=== PATIENT | male | born 1940 | race Caucasian/White ===

== ENCOUNTER 2024-11-14 14:36 | Outpatient (REF) | payer MEDICARE, SELFPAY ==
--- OUTSIDE RECORDS SUMMARY | 2024-11-14 14:45 | XMS_ITS | Clinical Summary ---
Author Organization [facility] [address] [facility] [address] Address [address] [facility] [place] [address] Phone Care Team Providers Care Type Caster Name Role Phone Ginette Eubanks MD Primary Care Prov ider Allergies Active Allergy Reactions Criticality Noted Date Comments Celecoxib Diarrhea 02/24/2023 Medications amLODIPine (NORVASC) 10 mg tablet Take 1 Tablet by mouth daily. 4 Active atorvastatin (LIPITOR) 40 mg tablet Take 1 tablet (40 mg total) by mouth 1 (one) time each day. Take with 20mg for total of 60mg 4 Active chlorthalidone (HYGROTON) 25 mg tablet Take 1 Tablet by mouth daily. 4 Active omeprazole (PriLOSEC) [address] capsule Take 1 Capsule by mouth daily. Take in am on empty stomach, wait 30 mins and then eat to activate the medication 4 Active nitroglycerin (NITROSTAT) 0.[address] 1 Tablet under the tongue every 5 minutes as needed for Chest pain. Check expiration 4 Active aspirin 81 mg EC tablet Take by mouth every other day. Active atorvastatin (LIPITOR) 20 mg tablet Take 1 tablet (20 mg total) by mouth 1 (one) time each day. Take with 40mg for total of 60mg 90 each 1 4 02/16/20 25 Active metoprolol succinate (TOPROL-XL) 50 mg 24 hr tablet Take 1 tablet (50 mg total) by mouth 1 (one) time each day. Do not crush or chew. 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 Hypercholesteremia 05/01/2009 GERD (gastroesophageal reflux disease) 9 Overview (07/08/2024): Hx of Schatzki's ring dilated by Dr Jones Nephrolithiasis 05/01/2009 Overview (07/08/2024): Right Cat scan 09/01 Kidney cysts 05/01/2009 Overview (07/08/2024): Bilateral, Cat scan 09/01, ultrasound 10/03, simple cysts Diverticulosis of colon 05/01/2009 Hypertension 05/01/2009 Encounters Date Type Department Care Team Description 08/19/2024 9:45 AM EST Office Visit Adult Medicine - [place] [address] [place] [phone] Kaitlin Mena PA Tremor (Primary Dx); Hypercholesteremia; Coronary artery disease involving galena heart without angina pectoris, unspecified vessel or lesion type; GIST (gastrointestinal stroma tumor), malignant, colon (CMS/HCC); Prediabetes; Primary osteoarthritis of right knee; Bladder mass; Hypertension, unspecified type; Old NV (myocardial infarction); Gastroesophageal reflux disease without esophagitis from Last 3 Months Immunizations Name Administration Dates Next Due Influenza trivalent, 0.5mL ( Fluad) 65yo and older 08/14/2023,07/18/2019 Influenza trivalent, 0.5mL, preservative free (Fluarix; FluLaval; Fluzone) ages 6mo and older (Afluria) 3 years and older 08/10/2013,10/07/2012,07/03/2011,06/21 [employer] SARS-CoV-2 COVID-19, mRNA, LNP-S, preservative free 07/03/2021,11/18/2020,11/09/2020,10/28 Pneumococcal polysaccharide 23 valent (Pneumovax 23) 2yo and older 05/01/2009 Td Tetanus diptheria (Tdvax) 7yo and older 05/03/2009 Tdap Tetanus diptheria acell ular pertussis (Boostrix; Adacel) 7yo and older 04/12/2018 Surgical History Surgery Date Site/Laterality Comments OTHER SURGICAL HISTORY 05/29/1997 PROCEDURE: DISKECTOMY LUMBAR SINGLE SP; COMMENT: left, 4-5 nerve root block OTHER SURGICAL HISTORY 09/28/1987 PROCEDURE: HISTORY OTHER; COMMENT: 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 OTHER SURGICAL HISTORY Bilateral PROCEDURE: HISTORY OTHER; COMMENT: Cauterization of eyelids due to frequent blepharitis Medical History Medical History Date Comments Hypertension 05/01/2009 DX:Hypertension Presbycusis 01/08/2021 DX:Presbycusis Lesion of stomach DX:Lesion of s tomach Abnormal MRI of abdomen DX:Abnor mal MRI of abdomen; COMMENT: Round lesion noted in inferior wall of antrum Gallstones DX:Gallstones Kidney cysts DX:Kidney cysts Chronic ischemic heart disease D X:Chronic ischemic heart disease Cervical spondylosis without myelopathy DX:Cervical spondylosis without myelopathy Esophageal reflux DX:Esophageal reflux Hyperlipidemia DX:Hyperlipidemi a Gastric lesion DX:Gastric lesio n Abnormal MRI of abdomen DX:Abnor mal MRI of abdomen GIST (gastrointestinal yobany a tumor), malignant, colon (CMS/HCC) 05/19/2024 DX:GIST (gastrointestinal s troma tumor), malignant, colon (HCC) Family History Medical History Relation Name Comments Heart attack Brother 1 Heart attack Father Heart attack Mother Relation Name Status Comments Brother 1 Brother 2 (Age 70s) Mi Father Mother (Age 90s) NV Sister NV Social History Tobacco Use Types Packs/Day Years Used Date Smoking Tobacco: Every Day Cigarettes Last attempted to quit: 09/21/2013 Smokeless Tobacco: Never Tobacco Cessation:Ready to Q uit: Not Asked; Counseling Given: Not Answered Alcohol Use Standard Drinks/Week Comments Yes 0 (1 standard drink = 0.6 oz pur e alcohol) Sex and Gender Information Value Date Recorded Sex Assigned at Not on file Legal Sex Male 4:39 PM EST Gender Identity Not on file Sexual Orientation Not on file Obstetrics History Last Filed Vital Signs Vital Sign Reading Time Taken Comments Blood Pressure 128/64 08/19/2024 10:05 AM EST Pulse 63 08/19/2024 9:47 AM EST Temperature 36.5 ??C (97.7 ??F) 08/19/2024 9:47 AM ES T Respiratory Rate - - Oxygen Saturation - - Inhaled Oxygen Concentration - - Weight 62.1 kg (137 lb) 08/19/2024 9:47 AM EST Height 162.6 cm (5' 4 ) 08/19/2024 9:47 AM EST Body Mass Index 23.52 08/19/2024 9:47 AM EST Plan of Treatment Upcoming Encounters Date Type Department Care Team (Late st Contact Info) Description 11/21/2024 8:30 AM EST Office Visit Adult Medicine - [place] [address] [place] [address] Kaitlin Mena PA [address] [place] [address] Health Maintenance Due Date Last Done Comments Hepatitis A Vaccines (1 of 2 - Risk 2-dose series) 1960 Zoster Vaccines (1 of 2) 1960 Hepatitis B Vaccines (1 of 3 - Risk 3-dose series) 2001 Pneumococcal Vaccine: 50+ Years (2 of 2 - PCV) 05/01/2010 05/01/2009 RSV Immunization Patients 60+ Years Old (1 - 1-dose 75+ series) 2016 Depression Screening 09/06/2022 Falls Risk Assessment 09/06/2022 Social Influencers of Health Screening 09/06/2022 Medicare Annual Wellness Visit 11/13/2023 11/13/2022 Hypertension/CHF/CAD Annual BMP Blood Test 05/19/2025 05/19/2024, 05/19/2024 DTaP,Tdap,and Td Vaccines (3 - Td or Tdap) 04/12/2028 04/12/2018, 05/03/2009 Cholesterol Screening (Lipid Panel) 08/19/2029 08/19/2024, 05/19/2024, 05/19/2024 COVID-19 Vaccine Completed 08/03/2024, , 07/03/2021, Additional history exists Influenza Vaccine Completed 08/03/2024, , 11/04/2022, Additional history exists HIB Vaccines Aged Out No longer eligi ble based on patient's age to complete this topic HPV Vaccines Aged Out No longer eligi ble based on patient's age to complete this topic IPV Vaccines Aged Out No longer eligi ble based on patient's age to complete this topic MMR Vaccines Aged Out No longer eligi ble based on patient's age to complete this topic Meningococcal ACWY Vaccine Aged Out N o longer eligible based on patient's age to complete this topic Meningococcal B Vacine Aged Out No lo nger eligible based on patient's age to complete this topic RSV Immunization Patients Under 20 months Aged Out No longer eligible based on patient's age to complete this topic Varicella Vaccines Aged Out No longer eligible based on patient's age to complete this topic Procedures Procedure Name Priority Date/Time Associated Diagnosis Comments LIPID PANEL WITH REFLEX TO DIRECT LDL Routine 08/19/2024 10:31 AM EST Hypercholesteremia ANNUAL BMP BLOOD TEST Routine 05/19/2024 from Last 3 Months or Most Recently Relevant to Health Maintenance Results * Lipid panel with reflex to direct LDL (08/19/2024 10:31 AM EST) Cholesterol 174 0 - 200 mg/dL LAB CHEMISTRY METHOD 08/19/2024 12:00 PM EST [facility] Triglycerides 117 0 - 150 mg/dL LAB CHEMISTRY METHOD 08/19/2024 12:00 PM EST [facility] HDL 61 >=40 mg/dL LAB CHEMISTRY METHOD 08/19/2024 12:00 PM [facility] LDL Calculated 90 0 - 100 mg/dL LAB CHEMISTRY METHOD 08/19/2024 12:00 PM [facility] VLDL Cholesterol Ethan 23.4 mg/dL LAB CHEMISTRY METHOD 08/19/2024 12:00 PM [facility] Non HDL Chol. (LDL+VLDL) 113 <145 mg/dL LAB CHEMISTRY METHOD 08/19/2024 12:00 PM [facility] Chol/HDL Ratio 2.9 0.0 - 4.4 LAB CHEMISTRY METHOD 08/19/2024 12:00 PM [facility] Blood Venous blood specimen / Unknown Venipuncture / Unknown 08/19/2024 10:31 AM EST 08/19/2024 10:31 AM EST Kaitlin BABCOCK LAB BLOOD ORDERABLES Final Result [facility] [address] [place] [address], [place] [phone] * Annual BMP Blood Test (05/19/2024) Pathologist [facility] Annual BMP Blood Test abstracted us Historical Provider HEALTH MAINTENANCE Final Result from Last 3 Months or Most Recently Relevant to Health Maintenance Insurance [employer] Care Teams Type Caster Relationship Specialty Start Date End Date Ginette Eubanks MD [address] [place] [phone] PCP - General Internal Medicine 06/15/14
[2024-11-14 16:07] LABS: Vitamin B12 547 pg/mL (200-900)
== END 2024-11-14 14:37 | disposition home or self-care (01) ==
LOC: HO.LAB 14:36
PROVIDERS: PCP Internal Medicine; Visit Provider Psychiatry & Neurology Neurology
DX: G31.84 Mild cognitive impairment of uncertain or unknown etiology (principal)
CPT/HCPCS: 36415; 82607

== ENCOUNTER 2024-12-20 12:24 | Outpatient (REF) | payer MEDICARE, SELFPAY | END 2024-12-20 12:25 | disposition home or self-care (01) | LOC: HO.LAB 12:24 | PROVIDERS: PCP Internal Medicine; Visit Provider Psychiatry & Neurology Neurology | DX: G31.84 Mild cognitive impairment of uncertain or unknown etiology (principal) | CPT/HCPCS: 82233; 82234; 84393 ==